=== PATIENT | female | born 1970 | race Caucasian/White ===

== ENCOUNTER → 2017-02-09 | Outpatient (CLI) | payer BC ==
--- NOTE | ~2017-02-09 | MY30 ---
[facility] A Service of [facility] & [facility] RADIOLOGY TEXT RESULTS PATIENT: ADRIENNE HANDLEY LOCATION: [facility] : 74 UNIT #: [id number] AGE: [address]: Karyn Baxter MD SEX: F ORDER DR: [id number] [address] [address] [id number] O MR#: [id number] Acc #: [id number] NAME: ADRIENNE HANDLEY : 1970 SEX: F STUDY DATE/TIME: 02/09/2017 11:09 UNIT: [facility] ROOM: STUDY DESCRIPTION: MY SCREEN KELECHI BILAT DIGITAL Attending Physician: Karyn Baxter M.D. Referring Physician: Karyn Baxter M.D. Ordering Physician: Karyn Baxter M.D. Primary Care Physician: Halima Mckeon A.P.R.N. MEDICAL IMAGING REPORT This report is preliminary unless electronic signature is present. EXAM Bilateral digital screening mammogram with CAD HISTORY Routine screening. No current complaint. Family history of breast cancer in mother. COMPARISON 02/07/2016, 02/01/2015, 01/19/2014 FINDINGS MLO and CC digital views of each breast were obtained with and without implant displacement technique. There are bilateral subpectoral silicone implants. Breasts are heterogeneously dense. There is a questionable nodule on the MLO implant displaced view. It is about a centimeter in diameter and is about 2 cm behind the nipple. There is also a 10 mm nodule in the lateral left breast on the CC view. I am not sure if these represent the same object, but I cannot confirm they were present on old studies. The right breast is stable. IMPRESSION Possible developing nodule or nodules in the left breast. Spot compression views in the CC and MLO projection and a straight mediolateral implant displaced view are recommended, followed by ultrasound. Patient's over the age of 40 are entered into a reminder system with target due date for the next mammogram. A result letter will be sent to the patient. BIRADS: 0 Needs additional imaging evaluate and/or prior mammograms for comparison. STS. [facility] A Service of [facility] & [facility] RADIOLOGY TEXT RESULTS PATIENT: ADRIENNE HANDLEY LOCATION: [facility] : 74 UNIT #: [id number] AGE: [address]: Karyn Baxter MD SEX: F ORDER DR: Dictated by... Davis Ponce M.D. THIS IS AN ELECTRONICALLY VERIFIED REPORT Davis Ponce M.D. at 02/09/2017 3:56 PM FEL/to TD: 02/09/2017 15:26 JOB #: [id number] MEDICAL IMAGING REPORT Page 1 of 1
== END | disposition home or self-care (01) ==
LOC: SMAM 10:27
DX: Z12.31 Encounter for screening mammogram for malignant neoplasm of breast (principal); Z80.3 Family history of malignant neoplasm of breast
CPT/HCPCS: G0202